=== PATIENT | female | born 1990 | race Hispanic/Latino ===

== ENCOUNTER 2022-12-12 14:58 | Emergency (ER) | payer SELFPAY ==
[~2022-12-12] VITALS: Ht 149.9 cm; Wt 55.0 kg
[2022-12-12 15:15] VITALS: BP 119/74
[2022-12-12 15:30] VITALS: BP 114/69
[2022-12-12] MEDS ORDERED: AMOX/K CLAV875 M1 PO (15:33)
[2022-12-12] MEDS ORDERED: FLOXIN OTIC0.3 % AS (15:33)
[2022-12-12 15:45] VITALS: BP 124/85
[2022-12-12 15:46] VITALS: BP 124/85
== END 2022-12-12 15:58 | disposition home or self-care (01) | DRG 156 ==
LOC: ED 14:58
DX: H60.92 Unspecified otitis externa, left ear (principal); H66.92 Otitis media, unspecified, left ear